=== PATIENT | female | born 1965 | race Caucasian/White ===

== ENCOUNTER → 2016-11-03 | Outpatient (CLI) | payer OTHER | LOC: COL.RAD 08:15 | DX: K86.1 Other chronic pancreatitis (principal); R14.0 Abdominal distension (gaseous); R11.2 Nausea with vomiting, unspecified; R93.8 Abnormal findings on diagnostic imaging of other specified body structures; R10.9 Unspecified abdominal pain | CPT/HCPCS: A9537 ==

== ENCOUNTER 2022-11-19 05:50 | Day surgery (SDC) | payer OTHER ==
[~2022-11-19] VITALS: Ht 170.2 cm; Wt 63.6 kg
[2022-11-19 06:12] VITALS: BP 130/78; PULSE 73; TEMP 97.2
[2022-11-19] MEDS ORDERED: CRESTOR 10MG10 MG PO (06:23)
[2022-11-19] MEDS ORDERED: TOPROL XL 25MG25 MG PO (06:23)
[2022-11-19] MEDS ORDERED: CYMBALTA 60MG60 MG PO (06:23)
[2022-11-19] MEDS ORDERED: LIDODERM 5% PATC1 EA TP (06:24)
[2022-11-19] MEDS ORDERED: ROBAXIN 50500 MG/TAB PO (06:24)
[2022-11-19] MEDS ORDERED: PRILOSEC 20MG20 MG PO (06:25)
[2022-11-19] MEDS ORDERED: ENTOCORT EC3 MG PO (06:49)
[2022-11-19 07:40] VITALS: BP 129/81; PULSE 68; TEMP 97.4
[2022-11-19 07:55] VITALS: BP 128/81; PULSE 66
[2022-11-19 08:10] VITALS: BP 132/87; PULSE 60
--- NOTE | 2022-11-19 14:56 | NUR ---
[id number]: PT TO RECOVERY BAY 1 FROM ENDO [facility] S/P EGD WITH BIOPSIES AND COLONOSCOPY WITH POLYPECTOMIES A&O, AMBULATED TO CHAIR AND PLACED ON MONITOR, VSS ON RA, STEADY GAIT WITH STANDBY ASSIST AND DENIES COMPLAINT RECEIVED REPORT AND ASSUMED CARE OF PT FROM ENDO RN PROVIDED COFFEE AND MUFFIN, TOLERATING WELL MD IN TO SEE PT POST PROCEDURE PT HAS REMAINED A&O, NAD, VSS ON RA, TOLERATING PO, IS WITHOUT SIGNIFICANT COMPLAINT, WITH STEADY GAIT THRU OUT STAY IV D/C'D. D/C INSTRUCTIONS, ANY FOLLOW UP REVIEWED AND HANDED TO PT. ALL QUESTIONS AND CONCERNS ADDRESSED TO PT SATISFACTION. TAKEN TO EXIT VIA W/C WITH ALL BELONGINGS AND PAPERWORK IN HAND, ASSISTED INTO PASSENGER SEAT OF POV. FRIEND TO DRIVE HOME.
== END 2022-11-19 08:10 | disposition home or self-care (01) ==
LOC: SDCO 05:50
DX: Z12.11 Encounter for screening for malignant neoplasm of colon (principal); D12.2 Benign neoplasm of ascending colon; K22.70 Barrett's esophagus without dysplasia; K21.00 Gastro-esophageal reflux disease with esophagitis, without bleeding; K57.30 Diverticulosis of large intestine without perforation or abscess without bleeding; F17.210 Nicotine dependence, cigarettes, uncomplicated; Z87.19 Personal history of other diseases of the digestive system; Z28.310 Unvaccinated for COVID-19
CPT/HCPCS: J2704; J7120